=== PATIENT | female | born 1970 | race Caucasian/White ===

== ENCOUNTER 2016-02-22 05:12 | Emergency (ER) | payer MEDICAID ==
[2016-02-22 05:20] VITALS: TEMP 98.2
[2016-02-22 05:26] VITALS: BMI 42.2
[2016-02-22] MEDS ORDERED: TRIMETHOPRIM-SULFAMETHOXAZOLE TAB PO STA (05:41)
[2016-02-22] MEDS ORDERED: LIDOCAINE 1% 5 ML (METHYLPARABEN FREE) INF ONE (05:42)
[2016-02-22] MEDS ORDERED: OXYCODONE HCL 5 MG TABLET PO STA (05:42)
--- NOTE | 2016-02-22 06:22 | EDPRACDOC ---
- General Information Chief Complaint: Wound Stated Complaint: ABSCESS Time Seen by Provider: 02/22/16 05:40 Information Source: Patient Mode of Arrival:: Car Home Medications: Home Medications Hydrocodone Bit/Acetaminophen [Lortab 5/325] 1 tab PO Q4-6H PRN #15 tab Ondansetron HCl [Zofran] 4 mg PO Q8H PRN #15 tab 01/10/16 Oxycodone HCl [Roxicodone] 5 mg PO Q4-6H PRN #20 tablet 02/22/16 Sulfamethoxazole/Trimethoprim [Bactrim Ds Tablet] 2 tab PO BID #40 tab 02/22/16 Allergies/Adverse Reactions: Allergies Allergy/AdvReac Type Severity Reaction Status Date / Time prednisone Allergy Rash-Locali Verified 02/22/16 05:21 zed - History of Present Illness Onset: 2 days HPI: PT PRESENTS WITH LEFT UPPER BUTTOCK ABSCESS WELL SWELLING TO LEFT DISTAL NARE. Location: Reports: Face, Buttock Pain: Reports: Moderate Quality: Reports: Draining, Painful, Red Associated Signs & Symptoms: Denies: Fever - Treatment Prior to ED Arrival Reported Medications/Treatment [employer] 1ST SHIFT Ibuprofen/Acetaminophen (Dose/ Ibuprofen 800 mg @ 0125 Time) ED Past Medical History - History Reviewed Yes Nurses notes reviewed and agree except as marked - Patient Medical History Cardiac History: Reports: Hypertension Respiratory History: Reports: Asthma, COPD GI/ History: Reports: Gastroesophageal Reflux Psychological History: Denies: Depression Surgical History: Reports: Cholecystectomy - Social Medical History Smoking Status: Heavy tobacco smoker (5 or more cigarettes/day or daily pipe/ cigar) Lives With: Family Lives In: Home EDM Review of Systems - Review of Systems ROS Negative Except as Marked: Yes All systems reviewed and were negative except as marked Constitutional: negative: Fever Integumentary: Other (ABSCESS TO SUPERIOR LEFT MEDIAL BUTTOCKS; SWELLING TO DISTAL LEFT NARE) - Physical Exam Constitutional: Alert Oriented to: Time, Person, Place Last recorded Vital Signs: Last Vital Signs Temp 98.2 F 02/22/16 05:18 Pulse 104 02/22/16 05:18 Resp 18 02/22/16 05:18 BP 174/85 02/22/16 05:18 Pulse Ox 97 02/22/16 05:18 Oxygen Pulse Oxygen Saturation 97 O2 Device Oxygen Flow Rate Fraction of Inspired Oxygen ( FIO2) - HEENT Head: negative: Deformity, Laceration Eye Exam: negative: Conjunctival Injection, Pale Conjunctiva ENT EAC: Swelling (LEFT NASAL TIP). negative: Blood, Cerumen - Integumentary Skin: Warm, Dry, Other (LEFT UPPER MEDIAL BUTTOCKS ABSCESS 2 CM BY 2 CM.) - Neurologic Memory Impaired: Normal Motor Function: Normal Mood Description: Anxious, Appropriate Thought: Coherent ED Abscess/Mass Exam - Integumentary Skin: Warm Mass: Size (2 CM BY 2 CM.), Red, Tender, Pustule, Local Cellulitis ED Procedures - Incision and Drainage Informed of risks, benefits and alternatives described.: Yes Informed Consent Signed: Verbal Site: LEFT UPPER MEDIAL BUTTOCK Indication: Painful Mass Anesthetic: Lidocaine Prep: Betadine Blade Size: 11 Incised Site drained: Reports: Blood, Pus Incised site was: Irrigated, Not Packed with Iodoform Decision Time to Discharge: 06:24 - Departure Yes I personally saw and evaluated the patient. Disposition: Home Condition: Stable Final Diagnosis: Left buttock abscess Instructions: MRSA (Methicillin Resistant Staphylococcus Aureus) (ED) Education/Counseling Given To: Patient, Family Member Education/Counseling Given Regarding: Diagnosis, Treatment, Prognosis, Follow Up Referrals: Patrick Coreas MD [Primary Care Provider] - Call for Appointment Prescriptions: Oxycodone HCl [Roxicodone] 5 mg PO Q4-6H PRN #20 tablet PRN Reason: Breakthrough Pain Sulfamethoxazole/Trimethoprim [Bactrim Ds Tablet] 2 tab PO BID #40 tab
[2016-02-22 06:46] VITALS: BP 157/78; PULSE 94
== END 2016-02-22 06:44 | disposition home or self-care (01) ==
LOC: ED 05:12
DX: L02.31 Cutaneous abscess of buttock (principal)
CPT/HCPCS: 10060; 99283; J3490